=== PATIENT | male | born 1930 | race Caucasian/White ===

== ENCOUNTER 2022-04-06 14:30 | Inpatient (IN) | payer OTHER ==
[~2022-04-06] VITALS: Ht 172.7 cm; Wt 74.8 kg
[2022-04-06 14:32] VITALS: BP 132/78
--- NOTE | 2022-04-06 14:33 | NUR ---
PATIENT BIBA TO BED 9
--- NOTE | 2022-04-06 14:52 | NUR ---
PT BIB [facility] C/C ALOC FROM HOME X4 DAYS. PT GCS 14. C/O DIZZINESS STATES FELLS 2 TIMES YESTERDAY. NSR ON MONITOR. AFEBRILE. NAD. SAFETY MAINTAINED.
[2022-04-06 15:36] LABS: BASOPHILS % (AUTO) 0.3 % (0.0-2.0); HEMATOCRIT 40.2 % (36-52); HEMOGLOBIN 13.7 g/dL (12.0-18.0); LYMPHOCYTES # (AUTO) 0.3 K/uL (2.0-11.5); LYMPHOCYTES % (AUTO) 5.2 % (20.5-51.1); MEAN CORPUSCULAR HEMOGLOBIN 35 pg (27-31); MEAN CORPUSCULAR HGB CONC 34 g/dL (33-37); MEAN CORPUSCULAR VOLUME 102.5 fL (80-94); MONOCYTES # (AUTO) 0.9 K/uL (0.8-1.0); MONOCYTES % (AUTO) 15.3 % (1.7-9.3); NEUTROPHILS # (AUTO) 4.4 K/uL (1.8-7.7); NEUTROPHILS % (AUTO) 79.2 % (42.2-75.2); PLATELET COUNT (AUTO) 204 K/uL (140-450); RED BLOOD CELL COUNT(AUTO) 3.92 MIL/uL (4.20-6.10); RED CELL DISTRIBUTION WIDTH 13.5 % (11.6-13.7); WHITE BLOOD COUNT (AUTO) 5.6 K/uL (4.8-10.8)
[2022-04-06 15:53] LABS: ALBUMIN 3.4 g/dL (3.4-5.0); ANION GAP 14.9 (8-16); ASPARTATE AMINOTRANSFERASE 31 U/L (15-37); CARBON DIOXIDE 28.4 mmol/L (21-32); CHLORIDE 97 mmol/L (98-107); CREATININE 1.2 mg/dL (0.6-1.3); GLUCOSE 214 mg/dL (74-106); POTASSIUM 5.3 mmol/L (3.5-5.1); SODIUM SERUM 135 mmol/L (136-145); TOTAL BILIRUBIN 1.1 mg/dL (0.0-1.0); UREA NITROGEN, BLOOD 29 mg/dL (7-18)
[2022-04-06 16:13] LABS: APPEARANCE,URINE CLEAR (CLEAR); BILIRUBIN,URINE NEGATIVE (NEGATIVE); BLOOD, URINE TRACE-I (NEGATIVE); COLOR,URINE DARK YELLOW (YELLOW); LEUKOCYTE ESTERASE ,URINE 1+ (NEGATIVE); NITRITE, URINE NEGATIVE (NEGATIVE); PH,URINE 5.5 (5.0-9.0); UGLUCOSE TRACE (NEGATIVE)
[2022-04-06 16:30] LABS: OTHER CASTS, URINE None Seen /LPF (None Seen)
[2022-04-06] MEDS ORDERED: AZITHROMYCIN 500 MG in DEXTROSE 5% 250 ML IV ONE (16:50)
[2022-04-06] MEDS ORDERED: ASPIRIN 81 MG TAB.CHEW PO ONE (16:50)
[2022-04-06] MEDS ORDERED: DEXAMETHASONE 10 MG/ML VIAL IVP ONE (16:50)
[2022-04-06] MEDS ORDERED: cefTRIAXone 1,000 MG VIAL ONE (17:07)
[2022-04-06] MEDS ORDERED: AZITHROMYCIN 500 MG INJ VIAL IV ONE (17:45)
[2022-04-06] MEDS ORDERED: POTASSIUM CHLORIDE 10 MEQ TABER PO PRN (18:05)
[2022-04-06] MEDS ORDERED: MAG SULF 2000 MG/WATER PREMIX 50 ML IV PRN (18:05)
[2022-04-06] MEDS ORDERED: ACETAMINOPHEN 325 MG TAB PO PRN (18:05)
[2022-04-06] MEDS ORDERED: DOCUSATE SODIUM 100 MG GELCAP PO PRN (18:05)
[2022-04-06] MEDS ORDERED: ONDANSETRON 4 MG/2 ML VIAL IVP PRN (18:05)
[2022-04-06] MEDS ORDERED: SODIUM ZIRCONIUM CYCLOSILICATE 10 GM POWD.PACK PO SCH (18:30)
[2022-04-06] MEDS ORDERED: TAMS0.4C96 PO (18:39)
[2022-04-06] MEDS ORDERED: ENAL5TAB48 PO (18:39)
[2022-04-06] MEDS ORDERED: DOXY-690 PO (18:39)
[2022-04-06] MEDS ORDERED: QUET50TA PO (18:39)
[2022-04-06] MEDS ORDERED: GLIM2TAB PO (18:39)
[2022-04-06] MEDS ORDERED: LORA10TA19 PO (18:39)
[2022-04-06] MEDS ORDERED: ACET-10509 PO (18:39)
[2022-04-06] MEDS: LORazepam 2 MG/ML VIAL IVP PRN (18:49)
--- NOTE | 2022-04-06 20:06 | NUR ---
Patient lying in bed, confused, chest rise and fall symmetrical, no c/o pain or s/s of discomfort.
[2022-04-06] MEDS ORDERED: PIPERACILLIN/TAZOBACTAM 3.375 GM VIAL IV ONE (21:13)
[2022-04-06] MEDS: PIPERACILLIN/TAZOBACTAM 3.375 GM in DEXTROSE 5% 50 ML IV SCH (21:26)
--- NOTE | 2022-04-06 22:10 | NUR ---
RT with patient.
--- NOTE | 2022-04-06 22:24 | NUR ---
Patient lying in bed, confused, chest rise and fall symmetrical, no c/o pain or s/s of discomfort.
--- NOTE | 2022-04-07 00:51 | NUR ---
Patient lying in bed, confused, chest rise and fall symmetrical, no c/o pain or s/s of discomfort.
[2022-04-07] MEDS ORDERED: DEXTROSE 50% 50 ML SYR IVP PRN ×2 (02:05→10:45)
[2022-04-07] MEDS: BLOOD GLUCOSE MONITORING 1 DEV DEV FS SCH ×5 (02:25→22:52)
[2022-04-07] MEDS: INSULIN LISPRO SLIDING SCALE 100 UNITS/ML VIAL SUBQ PRN ×3 (02:26→16:46)
--- NOTE | 2022-04-07 02:40 | NUR ---
Patient lying in bed, confused, chest rise and fall symmetrical, no c/o pain or s/s of discomfort.
--- NOTE | 2022-04-07 04:20 | NUR ---
Patient lying in bed, confused, chest rise and fall symmetrical, no c/o pain or s/s of discomfort.
[2022-04-07] MEDS ORDERED: PIPERACILLIN/TAZOBACTAM 3.375 GM VIAL IV ONE ×3 (05:10→21:48)
[2022-04-07] MEDS: PIPERACILLIN/TAZOBACTAM 3.375 GM in DEXTROSE 5% 50 ML IV SCH ×3 (05:40→22:52)
--- NOTE | 2022-04-07 06:00 | NUR ---
Patient cleaned, linen changed.
--- NOTE | 2022-04-07 06:32 | NUR ---
Patient lying in bed, confused, chest rise and fall symmetrical, no c/o pain or s/s of discomfort.
[2022-04-07] MEDS ORDERED: LORazepam 2 MG/ML VIAL ONE (06:57)
[2022-04-07] MEDS: MORPHINE SULFATE 2 MG/ML SYR IVP PRN ×2 (07:00→18:30)
[2022-04-07] MEDS: LORazepam 2 MG/ML VIAL IVP PRN ×2 (07:08→16:02)
--- NOTE | 2022-04-07 07:24 | NUR ---
Change of shift report given to AM shift nurse Laxmi BAZZI. AM shift nurse Laxmi RN verbalized understanding of report, no further questions.
[2022-04-07 07:28] LABS: BASOPHILS % (AUTO) 0.2 % (0.0-2.0); HEMATOCRIT 43.5 % (36-52); HEMOGLOBIN 14.7 g/dL (12.0-18.0); LYMPHOCYTES # (AUTO) 0.2 K/uL (2.0-11.5); LYMPHOCYTES % (AUTO) 4.2 % (20.5-51.1); MEAN CORPUSCULAR HEMOGLOBIN 35 pg (27-31); MEAN CORPUSCULAR HGB CONC 34 g/dL (33-37); MEAN CORPUSCULAR VOLUME 102.8 fL (80-94); MONOCYTES # (AUTO) 0.6 K/uL (0.8-1.0); MONOCYTES % (AUTO) 9.6 % (1.7-9.3); PLATELET COUNT (AUTO) 209 K/uL (140-450); RED BLOOD CELL COUNT(AUTO) 4.24 MIL/uL (4.20-6.10); RED CELL DISTRIBUTION WIDTH 13.5 % (11.6-13.7); WHITE BLOOD COUNT (AUTO) 5.8 K/uL (4.8-10.8)
[2022-04-07 08:00] LABS: ANION GAP 18.1 (8-16); CHLORIDE 98 mmol/L (98-107); CREATININE 1.3 mg/dL (0.6-1.3); GLUCOSE 150 mg/dL (74-106); POTASSIUM 5.1 mmol/L (3.5-5.1); SODIUM SERUM 136 mmol/L (136-145); UREA NITROGEN, BLOOD 32 mg/dL (7-18)
[2022-04-07] MEDS: DEXAMETHASONE 10 MG/ML VIAL IVP SCH ×2 (09:22→22:55)
[2022-04-07] MEDS: ASPIRIN 81 MG TAB.CHEW PO SCH (09:24)
[2022-04-07] MEDS: ASCORBIC ACID 500 MG TAB PO SCH (09:24)
[2022-04-07] MEDS: ZINC SULF 220 MG CAP PO SCH (09:24)
[2022-04-07] MEDS ORDERED: hePARIN / DEXT 5% PREMIX 250 ML IV SCH ×2 (10:45→11:00)
[2022-04-07] MEDS ORDERED: HEPARIN PER PHARMACY MC PRN (10:55)
[2022-04-07 12:23] LABS: PROTHROMBIN TIME 13.3 secs (10.8-13.4)
--- NOTE | 2022-04-07 12:25 | NUR ---
PATIENT HAS BEEN SCREENED AND CATEGORIZED MODERATE NUTRITION RISK. PATIENT WILL BE SEEN WITHIN 3-5 DAYS OF ADMISSION. 04/09/2212/12/[address]
--- NOTE | 2022-04-07 12:51 | NUR ---
Pt report RECEIVED FROM ROSE MARY COUCH . Transfer of care at this time.
--- NOTE | 2022-04-07 14:53 | NUR ---
PATIENT ASSISTED WITH LUNCH TRAY,PATIENT UNABLE TO FEED HIMSELF, CHANGED LINEN AND DIAPER, PERINEAL CARE PROVIDED. MADE COMFORTABLE IN BED, BED SET IN LOWEST POSITION. WILL CONTINUE WITH PLAN OF CARE
[2022-04-07] MEDS ORDERED: POTASSIUM CHLORIDE 10 MEQ TABER PO PRN (15:05)
[2022-04-07] MEDS ORDERED: MAG SULF 2000 MG/WATER PREMIX 50 ML IV PRN (15:05)
--- NOTE | 2022-04-07 16:22 | NUR ---
DISCHARGE PLAN PATIENT IS A 89 YEAR OLD MALE ADMITTED TO THE [facility]/ED ON 04/06/2022 DUE TO INCREASED DIZZINESS AND FALLING HITTING HIS HEAD. PATIENT IS ALSO CONGESTED AND COUGHING, CONGESTED. ABDIAS WAS NOT ABLE TO MEET WITH PATIENT IN PERSON DUE TO PATIENT TESTING COVID 19 POSITIVE. ABDIAS CALLED PATIENT'S SON JEWEL MENDEZ AT TO DISCUSS AND GATHER PATIENT'S COLLATERAL INFORMATION, PER SON PATIENT LIVES AT HOME WITH HIM AND HAS A PRIVATE CAREGIVER THAT STAYS WITH HIM WHILE HE GOES TO WORK. PER JEWEL HE AND HIS SISTER ALTERNATE ON THE CARE FOR PATIENT AND HE HAS A GOOD SUPPORT SYSTEM. PATIENT IS WELSH AND HAS GOOD CARE FROM THE FAMILY PATIENT HAS A PCP STEWART ECHEVARRIA WHO LAST VISIT WITH PATIENT WAS ABOUT A MONTH AGO PER PATIENT'S SON HIS SISTER TAKES HIM TO THE DOCTOR'S ABOUT ONCE A MONTH AND HAS A GOOD MEDICAL CARE AND RELATIONSHIP WITH PCP. BECAUSE HE IS DIABETIC. PER PATIENT'S SON HE HAS NO ISSUES WITH HIS MEDICATIONS AND GETS THEM FROM HIS PHARMACY IN [facility] IN [place]. PATIENT HAS ONLY A WALKER HIS DME AND IS ABLE TO WALK WITH ASSISTANCE BUT GET STIFF DURING THE COLD THEREFORE; HE DO NOT GO OUT MUCH WHEN IS TOO COLD PER SON PATIENT HAS HIS A.D.IN CHART AND DECLINED ANY OTHER FORMS PROVIDED BY ABDIAS PATIENT HAS HIS ADVANCE DIRECTIVES ON CHART AND SON AND DAUGHTER ARE HIS EMERGENCY CONTACTS AND DECISION MAKERS. DISCHARGE PLAN FOR PATIENT WHEN HE IS READY AND STABLE TO DISCHARGE IS FOR HIM TO RETURN HOME WITH FAMILY AND SON WILL BE PICKING HIM UP AND DRIVE HIM HOME . PER SON THEY ARE OPEN FOR MD RECOMMENDATIONS BUT BOTH SISTER AND BROTHER DO MAKE DECISIONS TOGETHER FOR PATIENT.. ABDIAS THANK HIM FOR THE INFORMATION PROVIDED AND ENDED THE CALL SW/CM WILL FOLLOW UP NEEDED.
--- NOTE | 2022-04-07 16:39 | NUR ---
Patient appears to be resting comfortably in bed. Vital Signs within normal limits. Respirations even and unlabored.
[2022-04-07] MEDS ORDERED: remdesivir COMMUNICATION ORDER 1 EA MISC MC PRN (18:35)
[2022-04-07] MEDS ORDERED: remdesivir CLINICAL MONITORING 1 EA MISC MC PRN (18:40)
[2022-04-07 18:48] LABS: ALBUMIN 3.4 g/dL (3.4-5.0); BILIRUBIN,DIRECT 0.4 mg/dL (0.0-0.3); TOTAL BILIRUBIN 0.9 mg/dL (0.0-1.0)
[2022-04-07] MEDS ORDERED: REMDESIVIR. 200 MG in NACL 0.9% 100 ML IV SCH (19:15)
--- NOTE | 2022-04-07 20:00 | NUR ---
AWAKE, RESTLESS, CONFUSED CONVERSATION. PT PULLED IV OUT. PT TO BE ADMITTED. ASSISTED WITH POSITIONING FOR COMFORT
--- NOTE | 2022-04-07 20:00 | NUR ---
RESTING IN BED WITH EYES OPEN. IS RESTLESS, PULLED IV OUT. SPEECH IS GARBLED
[2022-04-07] MEDS: QUEtiapine FUMARATE 25 MG TAB PO SCH (21:00)
--- NOTE | 2022-04-07 22:30 | NUR ---
REPORT TO ROSE MARY MARINO
--- NOTE | 2022-04-07 23:35 | NUR ---
TO 118 VIA MARIO ALBERTO, ATTACHED TO CM ACCOMPANIED BR RN AND ERT
--- NOTE | 2022-04-07 23:37 | NUR ---
RECEIVED REPORT FROM PEDRITO. PT WAS TRANSPORTED FROM ER VIA GURNEY. PT CAME IN ON RA BUT WAS SATING FROM 89 - 95. PT WAS PUT ON 2L NC AND PT IS SATING 95%. PT DOES NOT SPEAK CLEARLY BUT IS ABLE TO UNDERSTAND YAKUT. PT SPEAKS BROKEN YAKUT AND PARAGUAYAN ACCORDING TO THE SON. PT HAS SCRAPES ON LEGS BUT NO OPEN WOUNDS. PT IS NON-AMBULATORY AT THIS TIME. PT NOT HAVING ANY SIGNS OF SOB OR DISTRESS. PT EDUCATED MICROBIAL SPECIALIST LIGHT SYSTEM. CALL LIGHT WITHIN REACH. WILL CONTINUE TO MONITOR THE PT.
[2022-04-07 23:57] VITALS: BP 127/90
--- NOTE | 2022-04-08 03:10 | NUR ---
PT IS SLEEPING IN BED COMFORTABLY. PT NOT IN ANY ACUTE RESPIRATORY DISTRESS. BREATHING EVEN AND UNLABORED. WILL CONTINUE TO MONITOR THE PT.
[2022-04-08 04:00] VITALS: BP 120/83
[2022-04-08] MEDS ORDERED: PIPERACILLIN/TAZOBACTAM 3.375 GM VIAL IV ONE (04:06)
[2022-04-08] MEDS: PIPERACILLIN/TAZOBACTAM 3.375 GM in DEXTROSE 5% 50 ML IV SCH ×3 (04:19→20:17)
--- NOTE | 2022-04-08 04:20 | NUR ---
SCHEDULE MEDICATIONS GIVEN. NO ADVERSE REACTION NOTED. WILL CONTINUE TO MONITOR THE PT.
[2022-04-08] MEDS: INSULIN LISPRO SLIDING SCALE 100 UNITS/ML VIAL SUBQ PRN ×3 (06:36→20:23)
[2022-04-08] MEDS: BLOOD GLUCOSE MONITORING 1 DEV DEV FS SCH ×4 (06:48→20:22)
[2022-04-08 07:07] LABS: HEMATOCRIT 44.5 % (36-52); LYMPHOCYTES # (AUTO) 0.6 K/uL (2.0-11.5); LYMPHOCYTES % (AUTO) 5.8 % (20.5-51.1); MEAN CORPUSCULAR HEMOGLOBIN 35 pg (27-31); MEAN CORPUSCULAR HGB CONC 34 g/dL (33-37); MEAN CORPUSCULAR VOLUME 102.2 fL (80-94); MONOCYTES # (AUTO) 0.8 K/uL (0.8-1.0); NEUTROPHILS # (AUTO) 9.4 K/uL (1.8-7.7); NEUTROPHILS % (AUTO) 87.2 % (42.2-75.2); PLATELET COUNT (AUTO) 188 K/uL (140-450); RED BLOOD CELL COUNT(AUTO) 4.35 MIL/uL (4.20-6.10); RED CELL DISTRIBUTION WIDTH 13.6 % (11.6-13.7); WHITE BLOOD COUNT (AUTO) 10.8 K/uL (4.8-10.8)
[2022-04-08 07:17] LABS: ANION GAP 14.2 (8-16); CARBON DIOXIDE 23.8 mmol/L (21-32); CHLORIDE 100 mmol/L (98-107); CREATININE 1.2 mg/dL (0.6-1.3); GLUCOSE 168 mg/dL (74-106); SODIUM SERUM 133 mmol/L (136-145); UREA NITROGEN, BLOOD 44 mg/dL (7-18)
--- NOTE | 2022-04-08 07:24 | NUR ---
ENDORSED PT TO DAY SHIFT WELFARE MANAGER ISAURA FOR CONTINUITY OF CARE. PT IS STABLE.
--- NOTE | 2022-04-08 07:25 | NUR ---
RECEIVED PT FROM HOT SHOT NURSE NED FOR CONTINUITY OF CARE. PT SLEEPING, EASILY AROUSABLE BY VERBAL STIMULI. RESPIRATIONS EVEN AND UNLABORED ON 2L NC. NO DISTRESS NOTED. ON TELECOM NETWORK MANAGER. IV SITE ON LEFT WRIST 20G, SL. CALL LIGHT WITHIN REACH. SAFETY PRECAUTIONS IN PLACE.
[2022-04-08 07:29] LABS: ALBUMIN 3.1 g/dL (3.4-5.0); BILIRUBIN,DIRECT 0.4 mg/dL (0.0-0.3); TOTAL BILIRUBIN 0.9 mg/dL (0.0-1.0)
[2022-04-08 08:00] VITALS: BP 118/76
--- NOTE | 2022-04-08 08:00 | NUR ---
Patient's Plan of Care was discussed and reviewed with APPLIANCE SERVICE SUPERVISOR:
--- NOTE | 2022-04-08 08:20 | NUR ---
RECEIVED A CALL FROM PHARMACIST, ASKING IF PT IS ON HEPARIN DRIP. PT NOT ON HEPARIN DRIP AT THIS TIME. PER PHARMACIST, THERE WAS AN ORDER FROM YESTERDAY MORNING FOR HEPARIN DRIP BUT FOR SOME REASON IT HASN'T STARTED YET. PHARMACIST WILL CALL AGAIN TO GIVE UPDATE IF HEPARIN DRIP WILL BE STARTED. INFORMED ROSE MARY WELCH.
[2022-04-08] MEDS: TAMSULOSIN 0.4 MG CAP PO SCH (09:45)
[2022-04-08] MEDS: ASPIRIN 81 MG TAB.CHEW PO SCH (09:46)
[2022-04-08] MEDS: GLIMEPIRIDE 2 MG TAB PO SCH (09:46)
--- NOTE | 2022-04-08 09:46 | NUR ---
ADMINISTERED DUE MEDS. PT TOLERATED WELL.
[2022-04-08] MEDS: QUEtiapine FUMARATE 25 MG TAB PO SCH ×2 (09:47→20:17)
[2022-04-08] MEDS: ZINC SULF 220 MG CAP PO SCH (09:47)
[2022-04-08] MEDS: ENALAPRIL 5 MG TAB PO SCH (09:47)
[2022-04-08] MEDS: LORATADINE 10 MG TAB PO SCH (09:47)
[2022-04-08] MEDS: ASCORBIC ACID 500 MG TAB PO SCH (09:47)
--- NOTE | 2022-04-08 09:56 | NUR ---
VERIFIED WITH JOSE DE JESUS FROM PHARMACY REGARDING DEXAMETHASONE. PER JOSE DE JESUS, THERE WAS ADMINISTRATION DOCUMENTED FOR TODAY'S 9AM BUT NEVER PULLED OUT FROM [place]. WILL ASK MD IF OK TO GIVE THE DOSE FOR TODAY'S 9AM SCHEDULE.
--- NOTE | 2022-04-08 10:18 | NUR ---
ROSE MARY WELCH STARTED HEPARIN DRIP.
[2022-04-08 12:00] VITALS: BP 116/79
--- NOTE | 2022-04-08 12:05 | NUR ---
PER DR DENSON, OK TO GIVE DEXAMETHASONE.
--- NOTE | 2022-04-08 12:14 | NUR ---
NO SLIDING SCALE INSULIN ADMINISTERED FOR BS 147.
[2022-04-08] MEDS: DEXAMETHASONE 10 MG/ML VIAL IVP SCH (12:39)
--- NOTE | 2022-04-08 13:50 | NUR ---
HEPARIN DRIP D/C BY . ROSE MARY WELCH AWARE. PT DISCONNECTED TO HEPARIN DRIP. REMAINING HEPARIN DRIP MED WASTED WITH ROSE MARY WELCH.
[2022-04-08] MEDS ORDERED: FUROSEMIDE 20 MG/2 ML VIAL IVP SCH (14:00)
--- NOTE | 2022-04-08 14:33 | NUR ---
IV LASIX ADMINISTERED BY ROSE MARY WELCH.
[2022-04-08 16:00] VITALS: BP 111/75
--- NOTE | 2022-04-08 16:38 | NUR ---
SLIDING SCALE INSULIN ADMINISTERED FOR BS 176. ASSISTED PT EAT SNACKS. PT TOLERATED WELL.
[2022-04-08] MEDS: REMDESIVIR. 100 MG in NACL 0.9% 100 ML IV SCH (18:15)
--- NOTE | 2022-04-08 19:08 | NUR ---
ENDORSED PT TO SPRAYER LEATHER NURSE NED FOR CONTINUITY OF CARE. ALL NEEDS MET THROUGHOUT SHIFT. PT IS STABLE.
--- NOTE | 2022-04-08 19:10 | NUR ---
RECEIVED REPORT FROM DAY SHIFT ROSE MARY DELAROSA FOR CONTINUITY OF CARE. PT IS AWAKE AND ALERT. PT IS ON 2L NC. NOT IN ANY RESPIRATORY DISTRESS. PT HAS LEFT WRIST 20 GAUGE AND EVANS 22 GAUGE SALINE LOCK. PT HAS DINNER BY BEDSIDE. SAFETY PRECAUTIONS TAKEN. WILL CONTINUE TO MONITOR THE PT.
[2022-04-08 20:00] VITALS: BP 106/76
--- NOTE | 2022-04-08 20:20 | NUR ---
SCHEDULE MEDICATIONS GIVEN. NO ADVERSE REACTION NOTED. WILL CONTINUE TO MONITOR THE PT.
--- NOTE | 2022-04-08 23:00 | NUR ---
PT WAS CLEANED AND CHANGED. PT WAS COOPERATIVE. NO COMPLAINS. WILL CONTINUE TO MONITOR THE PT.
[2022-04-08] MEDS: ZOLPIDEM 5 MG TAB PO PRN (23:15)
[2022-04-09] VITALS: BP 113/70
--- NOTE | 2022-04-09 01:40 | NUR ---
PT OBSERVED. PT IS SLEEPING IN BED NOT IN ANY RESPIRATORY DISTRESS. WILL CONTINUE TO MONITOR THE PT.
[2022-04-09 04:00] VITALS: BP 114/82
[2022-04-09] MEDS: PIPERACILLIN/TAZOBACTAM 3.375 GM in DEXTROSE 5% 50 ML IV SCH ×3 (04:06→21:35)
--- NOTE | 2022-04-09 04:45 | NUR ---
PT WAS CLEANED AND CHANGED. PT WAS COOPERATIVE. NO COMPLAINS. WILL CONTINUE TO MONITOR THE PT.
[2022-04-09] MEDS: BLOOD GLUCOSE MONITORING 1 DEV DEV FS SCH ×4 (06:31→21:38)
--- NOTE | 2022-04-09 07:08 | NUR ---
ENDORSED PT TO DAY SHIFT ROSE MARY DELAROSA FOR CONTINUITY OF CARE. PT IS STABLE.
--- NOTE | 2022-04-09 07:09 | NUR ---
RECEIVED REPORT FROM ENVIRONMENTAL RESEARCH SCIENTIST NURSE NED FOR CONTINUITY OF CARE. PT AWAKE IN BED. CONFUSED. PT RE-ORIENTED TO TIME AND PLACE. PT STAYED IN BED. RESPIRATIONS EVEN AND UNLABORED ON RA. NO DISTRESS NOTED. ON BUTTON PUSHER. CALL LIGHT WITHIN REACH. SAFETY PRECAUTIONS IN PLACE.
[2022-04-09 07:51] LABS: ALBUMIN 3.2 g/dL (3.4-5.0); BILIRUBIN,DIRECT 0.5 mg/dL (0.0-0.3); TOTAL BILIRUBIN 0.2 mg/dL (0.0-1.0)
[2022-04-09 08:00] VITALS: BP 123/87
[2022-04-09 08:13] LABS: ANION GAP 13.4 (8-16); CARBON DIOXIDE 32.2 mmol/L (21-32); CHLORIDE 100 mmol/L (98-107); CREATININE 1.4 mg/dL (0.6-1.3); GLUCOSE 152 mg/dL (74-106); POTASSIUM 4.6 mmol/L (3.5-5.1); SODIUM SERUM 141 mmol/L (136-145); UREA NITROGEN, BLOOD 46 mg/dL (7-18)
[2022-04-09 09:29] LABS: BASOPHILS % (AUTO) 0.1 % (0.0-2.0); HEMATOCRIT 46.3 % (36-52); HEMOGLOBIN 15.7 g/dL (12.0-18.0); LYMPHOCYTES # (AUTO) 0.4 K/uL (2.0-11.5); LYMPHOCYTES % (AUTO) 4.2 % (20.5-51.1); MEAN CORPUSCULAR HEMOGLOBIN 35 pg (27-31); MEAN CORPUSCULAR HGB CONC 34 g/dL (33-37); MEAN CORPUSCULAR VOLUME 102.2 fL (80-94); MONOCYTES # (AUTO) 0.5 K/uL (0.8-1.0); MONOCYTES % (AUTO) 4.9 % (1.7-9.3); NEUTROPHILS # (AUTO) 9.1 K/uL (1.8-7.7); NEUTROPHILS % (AUTO) 90.8 % (42.2-75.2); PLATELET COUNT (AUTO) 184 K/uL (140-450); RED BLOOD CELL COUNT(AUTO) 4.53 MIL/uL (4.20-6.10); RED CELL DISTRIBUTION WIDTH 14.2 % (11.6-13.7)
[2022-04-09] MEDS: ZINC SULF 220 MG CAP PO SCH (09:44)
[2022-04-09] MEDS: QUEtiapine FUMARATE 25 MG TAB PO SCH ×2 (09:45→21:35)
[2022-04-09] MEDS: ENALAPRIL 5 MG TAB PO SCH (09:45)
[2022-04-09] MEDS: ASPIRIN 81 MG TAB.CHEW PO SCH (09:45)
[2022-04-09] MEDS: TAMSULOSIN 0.4 MG CAP PO SCH (09:45)
[2022-04-09] MEDS: LORATADINE 10 MG TAB PO SCH (09:45)
[2022-04-09] MEDS: ASCORBIC ACID 500 MG TAB PO SCH (09:46)
[2022-04-09] MEDS: GLIMEPIRIDE 2 MG TAB PO SCH (09:46)
[2022-04-09] MEDS: ENOXAPARIN 40 MG/0.4 ML SYR SUBQ SCH (09:47)
--- NOTE | 2022-04-09 09:54 | NUR ---
ADMINISTERED DUE MEDS. PT TOLERATED WELL. PT SITTING IN BED, RESTING. ON RA SATTING AT 95%.
[2022-04-09 12:00] VITALS: BP 118/79
[2022-04-09] MEDS: INSULIN LISPRO SLIDING SCALE 100 UNITS/ML VIAL SUBQ PRN ×3 (12:36→21:39)
[2022-04-09] MEDS: FUROSEMIDE 20 MG/2 ML VIAL IVP SCH (12:40)
[2022-04-09] MEDS: DEXAMETHASONE 10 MG/ML VIAL IVP SCH (12:41)
--- NOTE | 2022-04-09 12:55 | NUR ---
PT SITTING IN BED, EATING LUNCH WITH CITY CONTROLLER. NO DISTRESS NOTED. WILL CONTINUE TO MONITOR.
--- NOTE | 2022-04-09 13:36 | NUR ---
IV ABX GIVEN BY ROSE MARY NESBITT. NO ADVERSE REACTION NOTED.
--- NOTE | 2022-04-09 14:25 | NUR ---
DID ROUNDS. PT SLEEPING. BREATHING EVEN AND UNLABORED. NO DISTRESS NOTED. PT SATTING AT 96%. PT CONTINUOUSLY MONITORED.
[2022-04-09 16:00] VITALS: BP 126/93
--- NOTE | 2022-04-09 17:10 | NUR ---
SLIDING SCALE INSULIN ADMINISTERED FOR BS 187.
[2022-04-09] MEDS: REMDESIVIR. 100 MG in NACL 0.9% 100 ML IV SCH (17:27)
--- NOTE | 2022-04-09 17:27 | NUR ---
IV REMDESEVIR ADMINISTERED BY ROSE MARY NESBITT.
--- NOTE | 2022-04-09 17:38 | NUR ---
PHYSICAL THERAPIST AT BEDSIDE.
--- NOTE | 2022-04-09 19:27 | NUR ---
ENDORSED PT TO CAMERA REPAIRER NURSE NED FOR CONTINUITY OF CARE. ALL NEEDS MET THROUGHOUT SHIFT. PT IS STABLE.
--- NOTE | 2022-04-09 19:30 | NUR ---
RECEIVED REPORT FROM DAY SHIFT ELISA DELAROSA FOR CONTINUITY OF CARE. PT IS AWAKE. PT IS NOT IN ANY RESPIRATORY DISTRESS AND PT IS ON RA SATING 94%. PT HAS LW 20 GAUGE AND EVANS 22 GAUGE SALINE LOCK. PT IS ON BED REST. BED AT THE LOWEST POSITION. HEAD OF THE BED RAISED. WILL CONTINUE TO MONITOR THE PT.
[2022-04-09 20:00] VITALS: BP 127/82
--- NOTE | 2022-04-09 21:11 | NUR ---
SON CALLED ASKING HOW HIS FATHER WAS DOING. UPDATED SON ON PT STATUS. SON STARTED TO EXPLAIN ANGRILY TO ME HOW HE IS NOT ALLOWED TO BE ABLE TO SEE HIS FATHER. THAT THEY BEEN TELLING HIM HE CANNOT SEE HIM SINCE HIS FATHER IS COVID PT. SON WAS SAYING HE WILL COME DOWN IN THE MORNING AND SEE HIS FATHER NO MATTER WHAT.
--- NOTE | 2022-04-09 21:30 | NUR ---
PT PULLED HIS IV OUT ON LEFT WRIST. PT WAS CLEANED AND CHANGED. TOLERATED IT WELL. NOT IN ANY DISTRESS. WILL CONTINUE TO MONITOR THE PT.
[2022-04-09] MEDS: ZOLPIDEM 5 MG TAB PO PRN (21:34)
[2022-04-10] VITALS: BP 124/91
--- NOTE | 2022-04-10 | NUR ---
VITAL SIGNS TAKEN AND STABLE. PT IS SATING WELL ON RA 95%. PT NOT IN ANY RESPIRATORY DISTRESS. WILL CONTINUE TO MONITOR THE PT.
[2022-04-10] MEDS: LORazepam 2 MG/ML VIAL IVP PRN (01:50)
--- NOTE | 2022-04-10 01:50 | NUR ---
PT WAS BEING AGITATED. PULLING GOWN AND LEADS OFF. PT ALMOST PULLED IV OUT. ATIVAN WAS GIVEN PER MD ORDER.
--- NOTE | 2022-04-10 02:45 | NUR ---
PT IS SLEEPING COMFORTABLY IN BED. PT NOT IN ANY RESPIRATORY DISTRESS. PT SATING 96%. WILL CONTINUE TO MONITOR THE PT.
[2022-04-10 04:00] VITALS: BP 132/83
--- NOTE | 2022-04-10 04:15 | NUR ---
PT WAS CLEANED AND CHANGED. PT TOLERATED IT WELL. PT NOT IN ANY DISTRESS. PT SATING 96%. WILL CONTINUE TO MONITOR THE PT.
[2022-04-10] MEDS: PIPERACILLIN/TAZOBACTAM 3.375 GM in DEXTROSE 5% 50 ML IV SCH ×3 (05:04→22:00)
--- NOTE | 2022-04-10 07:15 | NUR ---
ENDORSED PT TO DAY SHIFT ROSE MARY HOLM FOR CONTINUITY OF CARE. PT IS STABLE.
[2022-04-10] MEDS: BLOOD GLUCOSE MONITORING 1 DEV DEV FS SCH ×4 (07:49→20:58)
[2022-04-10 07:56] LABS: HEMATOCRIT 42.7 % (36-52); HEMOGLOBIN 14.7 g/dL (12.0-18.0); LYMPHOCYTES # (AUTO) 0.3 K/uL (2.0-11.5); MEAN CORPUSCULAR HEMOGLOBIN 35 pg (27-31); MEAN CORPUSCULAR HGB CONC 35 g/dL (33-37); MEAN CORPUSCULAR VOLUME 100.7 fL (80-94); MONOCYTES # (AUTO) 0.4 K/uL (0.8-1.0); MONOCYTES % (AUTO) 4.1 % (1.7-9.3); NEUTROPHILS # (AUTO) 9.5 K/uL (1.8-7.7); NEUTROPHILS % (AUTO) 92.9 % (42.2-75.2); PLATELET COUNT (AUTO) 149 K/uL (140-450); RED BLOOD CELL COUNT(AUTO) 4.24 MIL/uL (4.20-6.10); RED CELL DISTRIBUTION WIDTH 13.4 % (11.6-13.7); WHITE BLOOD COUNT (AUTO) 10.3 K/uL (4.8-10.8)
[2022-04-10 08:00] VITALS: BP 146/94
[2022-04-10 08:08] LABS: ANION GAP 15.2 (8-16); CHLORIDE 101 mmol/L (98-107); CREATININE 1.2 mg/dL (0.6-1.3); GLUCOSE 134 mg/dL (74-106); POTASSIUM 4.2 mmol/L (3.5-5.1); SODIUM SERUM 142 mmol/L (136-145); UREA NITROGEN, BLOOD 44 mg/dL (7-18)
[2022-04-10 08:09] LABS: ALBUMIN 2.8 g/dL (3.4-5.0); BILIRUBIN,DIRECT 0.6 mg/dL (0.0-0.3); TOTAL BILIRUBIN 1.1 mg/dL (0.0-1.0)
[2022-04-10] MEDS: FUROSEMIDE 20 MG/2 ML VIAL IVP SCH (10:22)
[2022-04-10] MEDS: ASPIRIN 81 MG TAB.CHEW PO SCH (10:22)
[2022-04-10] MEDS: GLIMEPIRIDE 2 MG TAB PO SCH (10:22)
[2022-04-10] MEDS: QUEtiapine FUMARATE 25 MG TAB PO SCH ×2 (10:23→21:02)
[2022-04-10] MEDS: ENALAPRIL 5 MG TAB PO SCH (10:23)
[2022-04-10] MEDS: TAMSULOSIN 0.4 MG CAP PO SCH (10:23)
[2022-04-10] MEDS: LORATADINE 10 MG TAB PO SCH (10:23)
[2022-04-10] MEDS: ZINC SULF 220 MG CAP PO SCH (10:24)
[2022-04-10] MEDS: ENOXAPARIN 40 MG/0.4 ML SYR SUBQ SCH (10:26)
[2022-04-10] MEDS: ASCORBIC ACID 500 MG TAB PO SCH (10:31)
[2022-04-10 12:00] VITALS: BP 144/92
[2022-04-10] MEDS: INSULIN LISPRO SLIDING SCALE 100 UNITS/ML VIAL SUBQ PRN ×3 (12:31→21:00)
[2022-04-10 16:00] VITALS: BP 146/90
[2022-04-10] MEDS: REMDESIVIR. 100 MG in NACL 0.9% 100 ML IV SCH (18:07)
--- NOTE | 2022-04-10 19:15 | NUR ---
RECEIVED REPORT FROM DAY SHIFT NURSE ALTA FOR CONTINUITY OF CARE. PT AWAKE IN BED. CONFUSED. GOWN, PULSE OX AND TELE MONITOR REMOVED. PUT ON GOWN, PULSE OX AND TELE MONITOR BACK. PT RE-ORIENTED TO TIME AND PLACE. RESPIRATIONS EVEN AND UNLABORED. SATTING AT 96% ON RA. SKIN INTACT, WARM AND DRY TO TOUCH. CALL LIGHT WITHIN REACH. SAFETY PRECAUTIONS IN PLACE.
[2022-04-10 20:00] VITALS: BP 132/89
--- NOTE | 2022-04-10 21:10 | NUR ---
ADMINISTERED DUE MED. PT TOLERATED WELL.
--- NOTE | 2022-04-10 22:00 | NUR ---
IV ABX ADMINISTERED BY ROSE MARY REBOLLAR. NO ADVERSE REACTION NOTED.
[2022-04-10] MEDS: ZOLPIDEM 5 MG TAB PO PRN (22:45)
--- NOTE | 2022-04-10 22:45 | NUR ---
PT STILL AWAKE AND KEPT ON YAWNING. FAMILY MEMBER STATED THAT PT WAS TAKING SLEEPING MEDS AT HOME ENDORSED BY DAY SHIFT NURSE ALTA. PRN MED ERWIN ADMINISTERED.
[2022-04-11] VITALS: BP 144/85
--- NOTE | 2022-04-11 01:27 | NUR ---
PT IS STILL AWAKE AND SHOWING AGITATION - ASKING PHARMACIST IF I MAY GIVE ATIVAN TIV , INSPITE OF PT GOT AMBIEN 5MG P.O 2 HRS AGO - PER PHARMACIST - MAY GIVE ATIVAN NOW . - WILL CARRY OUT , WILL CONT. TO MONITOR . Addendum: 04/11/22 at 0442 by Amita Denson RN WHEN I COME BACK TO THE ROOM , PT IS SLEEPING , ON HOOK ON O2 SAT MONITOR - O2 SAT 94% .
--- NOTE | 2022-04-11 01:38 | NUR ---
CHANGED DIAPER AND REPOSITIONED PT. V/S TAKEN. PT CONTINUOUSLY MONITORED.
--- NOTE | 2022-04-11 02:28 | NUR ---
TOO SLEEPY , BUT INTERUPT THE SLEEP EASILY TO STIMULI SUCH COMMOTION AND SOUNDS , MAKES PT. COMFORTABLE ON BED , PROVIDE WARM BLANKET , DRY DIAPER , O2 SAT 94 % - ON HOOK ON O2 SAT MONITOR , CALL LIGHT WITHIN REACH , WILL CONT. TO MONITOR . THE OPENED ATIVAN IS ALREADY ASPIRATED IN TO SYRINGE - BY NURSING ASSESSMENT PT DOES NOT NEED ATIVAN AT THIS TIME , ATIVAN CAN NOT RETURN TO PYXIS DUE TO IT IS ALREADY ASPIRATED AND WILL DISPOSE PER PROTOCOL WITNESSED BY BONNIE NUÑEZ .
[2022-04-11 04:00] VITALS: BP 128/88
--- NOTE | 2022-04-11 04:56 | NUR ---
CLEANED AND CHANGED PT DIAPER. REPOSITIONED PT. NO DISTRESS NOTED. PT TOLERATED WELL. PT REMAINED CLEAN AND DRY.
[2022-04-11] MEDS: PIPERACILLIN/TAZOBACTAM 3.375 GM in DEXTROSE 5% 50 ML IV SCH (06:00)
[2022-04-11] MEDS: BLOOD GLUCOSE MONITORING 1 DEV DEV FS SCH ×4 (06:32→21:32)
--- NOTE | 2022-04-11 06:33 | NUR ---
NO INSULIN COVERAGE FOR BS 120.
--- NOTE | 2022-04-11 07:34 | NUR ---
GAVE BEDSIDE REPORT TO DAY SHIFT NURSE ELIOT FOR CONTINUITY OF CARE. ALL NEEDS MET THROUGHOUT SHIFT. PT IS STABLE.
[2022-04-11 08:00] VITALS: BP 130/88
--- NOTE | 2022-04-11 09:26 | NUR ---
POTENTIAL COVID RELATED SKIN FAILURE DUE TO TISSUE LESS TOLERATE TO PRESSURE, SHEARING AND POSSIBLE ASSOCIATED WITH MICROVASCULAR INJURY AND HYPOXIA -POSITIONING: TURN AND REPOSITION PATIENT Q 2H OR SOONER USE PILLOWS TO KEEP BONY PROMINENCES FROM DIRECT CONTACT WITH SURFACES USE REPOSITIONING WEDGES TO PROVIDE 30-DEGREE ANGLE FOR SIDE LYING POSITIONS OFFLOADING OR FOAM DRESSING TO ALL TUBING TO PREVENT MEDICAL DEVICES RELATED PRESSURE INJURY -RE-EVALUATING AND MANAGING INCONTINENCE MONITOR SKIN CONDITION DURING POSITION CHANGE DO NOT MASSAGE REDNESS, BONY PROMINENCES, DO NOT USE DONUT-TYPE DEVICES FREQUENT SKYLER-CARE AND PROVIDE BARRIER CREAMS PRN IF SOILING MOISTURE CONTROL BY OFFER BED PAPPAS/URINAL /ABSORBENT PAD TO WICK AND HOLD MOISTURE. KEEP SKIN DRY AND PROTECT FROM FRICTION -MANAGE FRICTION/SHEAR/MOBILITY KEEP HOB AT THE LOWEST LEVEL OF ELEVATION NO MORE THAN 30 DEGREE UNLESS OTHERWISE CONTRAINDICATED USE LIFT SHEET OR TRANSFER DEVICE TO MOVE PATIENT AND PREVENT LATERAL SHEER. PROTECT HEELS, ELBOWS BONY PROMENANCES WITH SKIN BERRIES OR FOAM DRESSING IF EXPOSED TO FRICTION OFFLOAD BILATERAL HEELS BY PLACING PILLOWS UNDER CALVES AT ALL TIMES, UNLESS OTHERWISE CONTRAINDICATED -PRESSURE REDISTRIBUTION SURFACE THERAPY NAVEED ISOFLEX MATTRESS -NUTRITION: PLEASE FOLLOW RD RECOMMENDATIONS AND OFFER NUTRITION SUPPLEMENTS IF ORDERED. PLEASE CONTACT WOUND CARE NURSE FOR ANY QUESTION AND CHANGE OF WOUND CONDITION.
[2022-04-11] MEDS: ASCORBIC ACID 500 MG TAB PO SCH (09:30)
[2022-04-11] MEDS: GLIMEPIRIDE 2 MG TAB PO SCH (09:30)
[2022-04-11] MEDS: DEXAMETHASONE 10 MG/ML VIAL IVP SCH (09:30)
[2022-04-11] MEDS: ENALAPRIL 5 MG TAB PO SCH (09:30)
[2022-04-11] MEDS: QUEtiapine FUMARATE 25 MG TAB PO SCH ×2 (09:30→21:37)
[2022-04-11] MEDS: TAMSULOSIN 0.4 MG CAP PO SCH (09:30)
[2022-04-11] MEDS: FUROSEMIDE 20 MG/2 ML VIAL IVP SCH (09:30)
[2022-04-11] MEDS: ZINC SULF 220 MG CAP PO SCH (09:30)
[2022-04-11] MEDS: ASPIRIN 81 MG TAB.CHEW PO SCH (09:30)
[2022-04-11] MEDS: ENOXAPARIN 40 MG/0.4 ML SYR SUBQ SCH (09:30)
[2022-04-11] MEDS: LORATADINE 10 MG TAB PO SCH (09:30)
--- NOTE | 2022-04-11 10:11 | NUR ---
PT. MAGALY WITH LOW DANIEL SCALE AT MODERATE TO HIGH RISK, CONTINUE TO FOLLOW PRESSURE INJURY PREVENTION INTERVENTIONS. -POSITIONING: TURN AND REPOSITION PATIENT Q 2H OR SOONER USE PILLOWS TO KEEP BONY PROMINENCES FROM DIRECT CONTACT WITH SURFACES USE REPOSITIONING WEDGES TO PROVIDE 30-DEGREE ANGLE FOR SIDE LYING POSITIONS OFFLOADING OR FOAM DRESSING TO ALL TUBING TO PREVENT MEDICAL DEVICES RELATED PRESSURE INJURY -RE-EVALUATING AND MANAGING INCONTINENCE MONITOR SKIN CONDITION DURING POSITION CHANGE DO NOT MASSAGE REDNESS, BONY PROMINENCES FREQUENT SKYLER-CARE AND PROVIDE BARRIER CREAMS PRN IF SOILING MOISTURE CONTROL BY OFFER BED PAPPAS/URINAL /ABSORBENT PAD TO WICK AND HOLD MOISTURE KEEP SKIN DRY AND PROTECT FROM FRICTION -MANAGE FRICTION/SHEAR/MOBILITY KEEP HOB AT THE LOWEST LEVEL OF ELEVATION NO MORE THAN 30 DEGREE UNLESS OTHERWISE CONTRAINDICATED USE LIFT SHEET OR TRANSFER DEVICE TO MOVE PATIENT AND PREVENT LATERAL SHEER. PROTECT HEELS, ELBOWS BONY PROMINENCES WITH SKIN BERRIES OR FOAM DRESSING IF EXPOSED TO FRICTION OFFLOAD BILATERAL HEELS BY PLACING PILLOWS UNDER CALVES AT ALL TIMES, UNLESS OTHERWISE CONTRAINDICATED -PRESSURE REDISTRIBUTION SURFACE THERAPY NAVEED ISOFLEX MATTRESS -NUTRITION: PLEASE FOLLOW RD RECOMMENDATIONS AND OFFER NUTRITION SUPPLEMENTS IF ORDERED. PLEASE CONTACT WOUND CARE NURSE FOR ANY QUESTION AND CHANGE OF WOUND CONDITION.
[2022-04-11] MEDS: INSULIN LISPRO SLIDING SCALE 100 UNITS/ML VIAL SUBQ PRN ×3 (11:55→21:35)
[2022-04-11 12:00] VITALS: BP 139/78
[2022-04-11] MEDS ORDERED: APIX5TAB PO (13:59)
[2022-04-11] MEDS ORDERED: DEC4 PO (13:59)
[2022-04-11] MEDS ORDERED: VITC500 PO (13:59)
[2022-04-11] MEDS ORDERED: ZINC220C29 PO (13:59)
[2022-04-11] MEDS ORDERED: ASPI81CT95 PO (13:59)
--- NOTE | 2022-04-11 15:45 | NUR ---
04/11/22 RD INITIAL ASSESSMENT COMPLETED PLEASE REFER TO NUTRITION ASSESSMENT UNDER CARE ACTIVITY FOR ESTIMATED NUTRITIONAL NEEDS. 1. CONTINUE [id number] DIET TOLERATED 2. RECOMMEND GLUCERNA BID FOR NUTRITION SUPPORT 3. MONITOR BLOOD GLUCOSE LEVELS 4. RD TO FOLLOW-UP 3-5 DAYS, MODERATE RISK MANUEL ARRIETA RD
[2022-04-11 16:00] VITALS: BP 128/76
[2022-04-11] MEDS: REMDESIVIR. 100 MG in NACL 0.9% 100 ML IV SCH (17:22)
--- NOTE | 2022-04-11 19:18 | NUR ---
RECEIVED REPORT FROM DAY SHIFT NURSE ELIOT FOR CONTINUITY OF CARE. PT AWAKE IN BED. NO DISTRESS NOTED. RESPIRATIONS EVEN AND UNLABORED ON RA. NO SIGNS OF PAIN. ON SHEEP CLIPPER. CALL LIGHT WITHIN REACH. SAFETY PRECAUTIONS IN PLACE.
[2022-04-11 20:00] VITALS: BP 121/82
--- NOTE | 2022-04-11 21:39 | NUR ---
ADMINISTERED DUE MED. SLIDING SCALE INSULIN GIVEN FOR BS 226. PT TOLERATED WELL.
[2022-04-12] VITALS: BP 131/81
--- NOTE | 2022-04-12 00:35 | NUR ---
PT SLEEPING. NO DISTRESS NOTED. CALL LIGHT WITHIN REACH. SAFETY PRECAUTIONS IN PLACE.
[2022-04-12 04:00] VITALS: BP 127/63
--- NOTE | 2022-04-12 04:58 | NUR ---
CLEANED AND CHANGED PT DIAPER. PT TOLERATED WELL. NO DISTRESS NOTED. PT REMAINED CLEAN AND DRY.
[2022-04-12] MEDS: BLOOD GLUCOSE MONITORING 1 DEV DEV FS SCH ×3 (06:02→17:33)
[2022-04-12] MEDS: INSULIN LISPRO SLIDING SCALE 100 UNITS/ML VIAL SUBQ PRN ×3 (06:02→17:33)
--- NOTE | 2022-04-12 06:03 | NUR ---
SLIDING SCALE INSULIN ADMINISTERED FOR BS 154.
--- NOTE | 2022-04-12 06:05 | NUR ---
SNACKS GIVEN TO PT. PT TOLERATED WELL. PT WENT BACK TO SLEEP.
--- NOTE | 2022-04-12 06:21 | NUR ---
PT SLEEPING. NO DISTRESS NOTED. HEPARIN DRIP AT 1100U/HR INFUSING. PT COMFORTABLY IN BED. SAFETY PRECAUTIONS IN PLACE. Addendum: 04/12/22 at 0632 by Jayne Calderon LVN WRONG PT.
--- NOTE | 2022-04-12 07:23 | NUR ---
GAVE BEDSIDE REPORT TO ROSE MARY MCCABE FOR CONTINUITY OF CARE. ALL NEEDS MET THROUGHOUT SHIFT. PT IS STABLE.
[2022-04-12 08:00] VITALS: BP 116/81
[2022-04-12 08:43] LABS: ALBUMIN 3.3 g/dL (3.4-5.0); ANION GAP 15.8 (8-16); ASPARTATE AMINOTRANSFERASE 40 U/L (15-37); CARBON DIOXIDE 33.5 mmol/L (21-32); CHLORIDE 100 mmol/L (98-107); CREATININE 1.3 mg/dL (0.6-1.3); GLUCOSE 136 mg/dL (74-106); POTASSIUM 4.3 mmol/L (3.5-5.1); SODIUM SERUM 145 mmol/L (136-145); TOTAL BILIRUBIN 1.7 mg/dL (0.0-1.0); UREA NITROGEN, BLOOD 45 mg/dL (7-18)
[2022-04-12 08:50] LABS: BILIRUBIN,DIRECT 0.8 mg/dL (0.0-0.3); TOTAL BILIRUBIN 1.6 mg/dL (0.0-1.0)
[2022-04-12 08:53] LABS: BASOPHILS % (AUTO) 0.1 % (0.0-2.0); EOSINOPHILS % (AUTO) 0.1 % (0.0-4.0); HEMATOCRIT 51.9 % (36-52); HEMOGLOBIN 17.6 g/dL (12.0-18.0); LYMPHOCYTES # (AUTO) 0.6 K/uL (2.0-11.5); MEAN CORPUSCULAR HEMOGLOBIN 34 pg (27-31); MEAN CORPUSCULAR HGB CONC 34 g/dL (33-37); MEAN CORPUSCULAR VOLUME 101.3 fL (80-94); MONOCYTES # (AUTO) 0.9 K/uL (0.8-1.0); MONOCYTES % (AUTO) 6.7 % (1.7-9.3); NEUTROPHILS # (AUTO) 11.1 K/uL (1.8-7.7); NEUTROPHILS % (AUTO) 88.1 % (42.2-75.2); PLATELET COUNT (AUTO) 162 K/uL (140-450); RED BLOOD CELL COUNT(AUTO) 5.12 MIL/uL (4.20-6.10); RED CELL DISTRIBUTION WIDTH 13.3 % (11.6-13.7); WHITE BLOOD COUNT (AUTO) 12.6 K/uL (4.8-10.8)
[2022-04-12 08:56] LABS: MAGNESIUM 2.1 mg/dL (1.8-2.4); PHOSPHORUS 4.2 mg/dL (2.5-4.9)
[2022-04-12] MEDS: ASPIRIN 81 MG TAB.CHEW PO SCH (09:18)
[2022-04-12] MEDS: GLIMEPIRIDE 2 MG TAB PO SCH (09:18)
[2022-04-12] MEDS: FUROSEMIDE 20 MG/2 ML VIAL IVP SCH (09:18)
[2022-04-12] MEDS: DEXAMETHASONE 10 MG/ML VIAL IVP SCH (09:18)
[2022-04-12] MEDS: LORATADINE 10 MG TAB PO SCH (09:19)
[2022-04-12] MEDS: QUEtiapine FUMARATE 25 MG TAB PO SCH (09:21)
[2022-04-12] MEDS: TAMSULOSIN 0.4 MG CAP PO SCH (09:21)
[2022-04-12] MEDS: ENALAPRIL 5 MG TAB PO SCH (09:21)
[2022-04-12] MEDS: ZINC SULF 220 MG CAP PO SCH (09:27)
[2022-04-12] MEDS: ASCORBIC ACID 500 MG TAB PO SCH (09:27)
[2022-04-12] MEDS: ENOXAPARIN 40 MG/0.4 ML SYR SUBQ SCH (09:28)
[2022-04-12 12:00] VITALS: BP 93/55
--- NOTE | 2022-04-12 13:43 | NUR ---
DC PLANNING: RECEIVED A CALL FROM [facility] CM SPOKE WITH YOAN STATED OK TO GO TO [facility] CAN GO TO ROOM 23B. # TO GIVE REPORT [phone] YOAN WILL ARRANGED TRANSPORT WITH [employer] [facility] . NOTIFIED PT'S SON JEWEL AND HE AGREED AND [facility] CM TO FOLLOW
[2022-04-12 16:00] VITALS: BP 108/76
[2022-04-12 18:14] VITALS: BP 108/76
--- NOTE | 2022-04-12 18:28 | NUR ---
REPORT CALLED TO ELISA PÉREZ AT [facility]. ELISA STATED THERE IS NO RN AVAILABLE TO TAKE REPORT AT THIS TIME. Yancy BALDERAS RN.
--- NOTE | 2022-04-12 18:33 | NUR ---
TRANSPORT TEAM HERE TO PICK PATIENT UP. IV DISCONTINUED. PATIENT DISCHARGED TO [facility]. Yancy BALDERAS RN.
== END 2022-04-12 18:35 | DRG 871 ==
LOC: MED 14:30 → EDBD 14:30 → MTU 17:59
PROVIDERS: ADMIT Family Medicine; ATTEND Family Medicine
PROC: XW033E5 Introduction of Remdesivir Anti-infective into Peripheral Vein, Percutaneous Approach, New Technology Group 5 (ICD-10-PCS; principal; 2022-04-07)
DX: A41.9 Sepsis, unspecified organism (principal); I21.4 Non-ST elevation (NSTEMI) myocardial infarction; U07.1 COVID-19; J12.82 Pneumonia due to coronavirus disease 2019; N39.0 Urinary tract infection, site not specified; E87.1 Hypo-osmolality and hyponatremia; E44.1 Mild protein-calorie malnutrition; I10 Essential (primary) hypertension; E87.5 Hyperkalemia; E83.51 Hypocalcemia; E87.8 Other disorders of electrolyte and fluid balance, not elsewhere classified; E86.0 Dehydration; Z68.25 Body mass index [BMI] 25.0-25.9, adult; E11.9 Type 2 diabetes mellitus without complications
CPT/HCPCS: 36415; 70450; 71045; 80048; 80053; 80076; 81001; 82948; 83735; 84100; 84484; 85025; 85610; 85730; 87040; 87081; 87086; 93005; 96365; 96367; 96372; 96375; 97112; 97163-GP; 97530; 99291; J0456; J0696; J1100; J1644; J1650; J1815; J1940; J2060; J2270; J2543; J7060